=== PATIENT | female | born 1945 ===

== ENCOUNTER 2019-01-14 15:56 | Inpatient (IN) | payer MEDICARE ==
[~2019-01-14] VITALS: Ht 152.4 cm; Wt 53.1 kg
[2019-01-14 18:00] VITALS: BP 140/80
[2019-01-14] MEDS ORDERED: Z GUARD REMEDY PASTE 57 GM TUBE TOP PRN (18:00)
[2019-01-14] MEDS ORDERED: ALBU1.25 IH (19:01)
[2019-01-14] MEDS ORDERED: ENOX40DI SQ (19:01)
[2019-01-14] MEDS ORDERED: ASPI81TA31 PO (19:02)
[2019-01-14] MEDS ORDERED: CALC500T55 PO (19:02)
[2019-01-14] MEDS ORDERED: DULO60CA64 PO (19:02)
[2019-01-14] MEDS ORDERED: LACT1CAP72 PO (19:02)
[2019-01-14] MEDS ORDERED: MULT-439 PO (19:02)
[2019-01-14] MEDS ORDERED: BUDE3CAP15 PO (19:02)
[2019-01-14] MEDS ORDERED: SACC250C PO (19:02)
[2019-01-14] MEDS ORDERED: MONT10TA25 PO (19:02)
[2019-01-14] MEDS ORDERED: DONE10TA44 PO (19:02)
[2019-01-14] MEDS ORDERED: GABA600T12 PO (19:02)
[2019-01-14] MEDS ORDERED: ASCO-375 PO (19:02)
[2019-01-14] MEDS ORDERED: PANT40TA4 PO (19:02)
[2019-01-14] MEDS ORDERED: FLUT1BLS IH (19:02)
[2019-01-14] MEDS ORDERED: CHOL20004 PO (19:02)
[2019-01-14] MEDS ORDERED: PROT946L PO (19:02)
[2019-01-14] MEDS ORDERED: VIT1CAPS44 PO (19:02)
[2019-01-14] MEDS ORDERED: OMEG1CAP55 PO (19:02)
[2019-01-14 19:50] VITALS: BP 107/58
[2019-01-14] MEDS ORDERED: ALBUTEROL SULFATE 2.5 MG/3 ML NEBU NEB PRN (20:15)
[2019-01-14] MEDS: OMEGA-3 FATTY ACIDS/FISH OIL CAPSULE PO SCH (21:00)
[2019-01-14] MEDS: ACIDOPHILUS/BULGARICUS CHEW TAB PO SCH (21:00)
[2019-01-14] MEDS ORDERED: ENOXAPARIN SODIUM 40 MG/0.4 ML DISP.SYRIN SQ SCH (21:00)
[2019-01-14] MEDS: CULTURELLE CAPSULE PO SCH (21:00)
[2019-01-14] MEDS ORDERED: ENOXAPARIN SODIUM 40 MG/0.4 ML DISP.SYRIN SQ ONE (22:19)
[2019-01-14] MEDS: ALBUTEROL SULFATE 1.25 MG/3 ML NEBU IH SCH (22:20)
[2019-01-14] MEDS: IPRATROPIUM BROMIDE 0.5 MG/2.5 ML NEBU NEB PRN (22:20)
--- NOTE | 2019-01-15 04:09 | NUR ---
admitted from [facility] on 01/14/19 with admitting diagnosis of S/P left hip IM elvira placement (01/01) by Dr Yan. aaox3-4 with periods of forgetfulness. Cooperative and was able to answer questions appropriately on admission. left hip incision with anyi intact on 3 incisional sites. Denies any pain nor any discomfort. Offerred Waldron but refuse to take says its habit forming. Dr Watson aware of patient's admission. Incontinent of bowel and bladder. Kept clean and dry. Sacral area reddenned. Hx of COPD, HTN, CAD, Cataract removal, Anemia, Osteoporosis, Hyperlipidemia. On O2 @4L via nasal cannula, pulse ox 90-91%. Respiratory treatments given as ordered. No SOB nor any chest discomfort noted. Will monitor patient.
[2019-01-15] MEDS: HYDROCODONE/APAP 10-325 MG TABLET PO PRN (04:36)
[2019-01-15 05:54] VITALS: BP 131/64
[2019-01-15] MEDS: PANTOPRAZOLE SODIUM 40 MG TABLET.DR PO SCH (06:33)
[2019-01-15] MEDS: ALBUTEROL SULFATE 1.25 MG/3 ML NEBU IH SCH ×3 (06:42→22:47)
[2019-01-15] MEDS ORDERED: POTASSIUM CHLORIDE 20 MEQ TAB.PRT.SR PO ONE (08:00)
[2019-01-15 08:47] VITALS: BP 131/56
[2019-01-15] MEDS: ACIDOPHILUS/BULGARICUS CHEW TAB PO SCH (08:54)
[2019-01-15] MEDS: ASPIRIN 81 MG TAB.CHEW PO SCH (08:54)
[2019-01-15] MEDS: CULTURELLE CAPSULE PO SCH ×2 (08:54→20:14)
[2019-01-15] MEDS: ASCORBIC ACID 500 MG TABLET PO SCH (08:54)
[2019-01-15] MEDS: GABAPENTIN 300 MG CAPSULE PO SCH ×3 (08:54→16:41)
[2019-01-15] MEDS: DONEPEZIL 10 MG TABLET PO SCH (08:54)
[2019-01-15] MEDS: OMEGA-3 FATTY ACIDS/FISH OIL CAPSULE PO SCH ×2 (08:54→20:14)
[2019-01-15] MEDS: CHOLECALCIFEROL 1,000 UNIT TABLET PO SCH (08:55)
[2019-01-15] MEDS: MULTIVITAMINS,THERAPEUTIC TABLET PO SCH (08:55)
[2019-01-15] MEDS: CALCIUM CARBONATE 500 MG TABLET PO SCH (08:55)
[2019-01-15] MEDS: DULOXETINE 60 MG CAPSULE.DR PO SCH (08:55)
[2019-01-15] MEDS: MONTELUKAST SODIUM 10 MG TABLET PO SCH (08:55)
[2019-01-15] MEDS: FLUTICASONE/VILANTEROL 1 EACH BLST.W.DEV IH SCH (08:55)
[2019-01-15] MEDS ORDERED: BUDESONIDE EC 3 MG CAP.SR.24H PO SCH (09:00)
[2019-01-15] MEDS: PROTEIN SUPPLEMENT (PROSTAT) 30 ML LIQUID PO SCH (09:11)
[2019-01-15] MEDS: IPRATROPIUM BROMIDE 0.5 MG/2.5 ML NEBU NEB PRN (15:35)
--- NOTE | 2019-01-15 15:38 | NUR ---
INTERDISCIPLINARY TEAM CONFERENCE
[2019-01-15 16:00] VITALS: BP 94/56
--- NOTE | 2019-01-15 18:00 | NUR ---
Patient started therapy for unsteady gait and ADL ability. Continue oxygen via nasal cannula. tolerated well. Seen and examined by MD Wiley. no new order. will continue monitor
--- NOTE | 2019-01-15 19:30 | NUR ---
PATIENT RECEIVED IN BED WATCHING TV. ALERT AND ORIENTED X 2-3. NO C/O PAIN OR SOB AT THIS TIME. ON 3 L OF OXYGEN VIA NASAL CANULA. WAITING TO HEAR FROM NEXT OF KIN REGARDING BUDESONIDE CAPSULE TO BE BROUGHT FROM HOME. SIDE RAILS UP BILATERALLY FOR SAFETY. WILL CONTINUE TO MONITOR.
[2019-01-15] MEDS: ENOXAPARIN SODIUM 40 MG/0.4 ML DISP.SYRIN SQ SCH (20:15)
[2019-01-15 20:32] VITALS: BP 122/78
[2019-01-16 05:23] VITALS: BP 106/57
[2019-01-16] MEDS: PANTOPRAZOLE SODIUM 40 MG TABLET.DR PO SCH (06:37)
[2019-01-16 06:44] LABS: BASOPHILS # (AUTO) 0.1 K/uL (0.0-8.0); BASOPHILS % (AUTO) 2.1 % (0.0-2.0); EOSINOPHILS # (AUTO) 0.3 K/uL (0.0-0.7); HEMATOCRIT 24.3 % (31.2-41.9); HEMOGLOBIN 8.3 g/dL (10.9-14.3); LYMPHOCYTES # (AUTO) 1.5 K/uL (20.0-40.0); LYMPHOCYTES % (AUTO) 22.8 % (20.5-51.5); MEAN CORPUSCULAR HEMOGLOBIN 30.6 uug (24.7-32.8); MEAN CORPUSCULAR HGB CONC 34 g/dL (32.3-35.6); MEAN CORPUSCULAR VOLUME 89.1 fL (75.5-95.3); MONOCYTES # (AUTO) 0.9 K/uL (2.0-10.0); MONOCYTES % (AUTO) 14.2 % (0.0-11.0); NEUTROPHILS # (AUTO) 3.6 K/uL (1.8-8.9); NEUTROPHILS % (AUTO) 56.9 % (38.5-71.5); PLATELET COUNT (AUTO) 493 K/uL (179-408); RED BLOOD CELL COUNT(AUTO) 2.73 MIL/uL (3.63-4.92); WHITE BLOOD COUNT (AUTO) 6.4 K/uL (3.8-11.8)
[2019-01-16 06:56] LABS: CARBON DIOXIDE 27 mmol/L (21-32); CHLORIDE 106 mmol/L (98-107); CREATININE 0.5 mg/dL (0.6-1.3); GLUCOSE 91 mg/dL (74-106); MAGNESIUM 1.6 mg/dL (1.8-2.4); PHOSPHOROUS 3.5 mg/dL (2.5-4.9); POTASSIUM 3.9 mmol/L (3.5-5.1); UREA NITROGEN, BLOOD 14 mg/dL (7-18)
[2019-01-16] MEDS: ALBUTEROL SULFATE 1.25 MG/3 ML NEBU IH SCH ×2 (07:17→14:56)
[2019-01-16] MEDS: ASCORBIC ACID 500 MG TABLET PO SCH (08:40)
[2019-01-16] MEDS: DONEPEZIL 10 MG TABLET PO SCH (08:40)
[2019-01-16] MEDS: GABAPENTIN 300 MG CAPSULE PO SCH ×3 (08:40→17:26)
[2019-01-16] MEDS: ASPIRIN 81 MG TAB.CHEW PO SCH (08:40)
[2019-01-16] MEDS: CHOLECALCIFEROL 1,000 UNIT TABLET PO SCH (08:40)
[2019-01-16] MEDS: CALCIUM CARBONATE 500 MG TABLET PO SCH (08:41)
[2019-01-16] MEDS: OMEGA-3 FATTY ACIDS/FISH OIL CAPSULE PO SCH ×2 (08:41→20:43)
[2019-01-16] MEDS: CULTURELLE CAPSULE PO SCH ×2 (08:41→20:43)
[2019-01-16] MEDS: MULTIVITAMINS,THERAPEUTIC TABLET PO SCH (08:41)
[2019-01-16] MEDS: MONTELUKAST SODIUM 10 MG TABLET PO SCH (08:42)
[2019-01-16] MEDS: DULOXETINE 60 MG CAPSULE.DR PO SCH (08:42)
[2019-01-16] MEDS: FLUTICASONE/VILANTEROL 1 EACH BLST.W.DEV IH SCH (08:42)
[2019-01-16] MEDS: PROTEIN SUPPLEMENT (PROSTAT) 30 ML LIQUID PO SCH (08:49)
--- NOTE | 2019-01-16 09:00 | NUR ---
Patient alert, oriented x 3, not in any form of acute distress, on oxygen at 3LPM via nasal cannula. She denies any pain or discomfort at this time. Assisted patient to the toilet with physical therapist for BM, cleaned up and assisted back to wheelchair. Due medications administered and patient tolerated well. Call light and frequently used items placed within reach. Safety measures maintained.
[2019-01-16] MEDS ORDERED: MAGNESIUM OXIDE 400 MG TABLET PO ONE (14:00)
[2019-01-16 16:51] VITALS: BP 97/48
--- NOTE | 2019-01-16 19:32 | NUR ---
Patient received in bed sleeping. Alert and oriented x 3-4. No c/o of pain or SOB at this time. Midline in right upper arm intact and patent. Requesting A & D for dry lips. Will try and locate. Call light and frequently used items within reach. Will continue to monitor.
[2019-01-16] MEDS: ENOXAPARIN SODIUM 40 MG/0.4 ML DISP.SYRIN SQ SCH (20:47)
[2019-01-16 21:40] VITALS: BP 99/50
[2019-01-16] MEDS: ALBUTEROL SULFATE 1.25 MG/3 ML NEBU NEB SCH (22:36)
[2019-01-17] MEDS: PANTOPRAZOLE SODIUM 40 MG TABLET.DR PO SCH (06:33)
[2019-01-17 06:46] VITALS: BP 112/50
[2019-01-17] MEDS: ALBUTEROL SULFATE 1.25 MG/3 ML NEBU NEB SCH ×3 (07:33→22:30)
[2019-01-17] MEDS: IPRATROPIUM BROMIDE 0.5 MG/2.5 ML NEBU NEB PRN (07:33)
[2019-01-17 07:40] VITALS: BP 110/49
--- NOTE | 2019-01-17 08:02 | NUR ---
patient in bed, awake, no sob,resp even nonlabored,ski warm and dry to touch, no acute distress noted
[2019-01-17] MEDS: CHOLECALCIFEROL 1,000 UNIT TABLET PO SCH (09:35)
[2019-01-17] MEDS: DONEPEZIL 10 MG TABLET PO SCH (09:35)
[2019-01-17] MEDS: GABAPENTIN 300 MG CAPSULE PO SCH ×3 (09:35→17:47)
[2019-01-17] MEDS: CULTURELLE CAPSULE PO SCH ×2 (09:36→20:47)
[2019-01-17] MEDS: MULTIVITAMINS,THERAPEUTIC TABLET PO SCH (09:36)
[2019-01-17] MEDS: CALCIUM CARBONATE 500 MG TABLET PO SCH (09:36)
[2019-01-17] MEDS: ASPIRIN 81 MG TAB.CHEW PO SCH (09:36)
[2019-01-17] MEDS: DULOXETINE 60 MG CAPSULE.DR PO SCH (09:36)
[2019-01-17] MEDS: ASCORBIC ACID 500 MG TABLET PO SCH (09:36)
[2019-01-17] MEDS: OMEGA-3 FATTY ACIDS/FISH OIL CAPSULE PO SCH ×2 (09:37→20:47)
[2019-01-17] MEDS: FLUTICASONE/VILANTEROL 1 EACH BLST.W.DEV IH SCH (09:37)
[2019-01-17] MEDS: PROTEIN SUPPLEMENT (PROSTAT) 30 ML LIQUID PO SCH (09:38)
[2019-01-17] MEDS: BUDESONIDE 3 MG PO SCH (12:37)
[2019-01-17 15:56] VITALS: BP 94/42
--- NOTE | 2019-01-17 16:47 | NUR ---
patient is alert, oriented x3, verbally responsive, no sob, resp even nonlabored,skin warm and dry touch, status post left hip fracture, dressing intact, noted with left heel redness, right heel callus with open wound, kept heels off the pressure, wound consult placed, patient is on Lovenox, no signs or symptoms of bleeding noted, patient kept on 2liter o2, saturating at 90%. moderate to max assist with ADLs, noted with sacral redness, repositioned every 2 hours, kept dry and clean. call light with in reach, all needs attended timely.
--- NOTE | 2019-01-17 16:50 | NUR ---
INDIVIDUALIZED OVERALL PLAN OF CARE
--- NOTE | 2019-01-17 16:55 | NUR ---
family brought the medication name Budesonide given to pharmacy
[2019-01-17] MEDS: MONTELUKAST SODIUM 10 MG TABLET PO SCH (17:49)
[2019-01-17 20:45] VITALS: BP 96/48
[2019-01-17] MEDS: ENOXAPARIN SODIUM 40 MG/0.4 ML DISP.SYRIN SQ SCH (20:50)
--- NOTE | 2019-01-17 21:28 | NUR ---
Received pt resting in bed. AAO x3. On 2L O2 via NC. No acute distress noted. Denies pain or discomfort. Due meds given as ordered. Safety measures maintained. Call light within reach. Will continue to monitor.
[2019-01-18 05:51] VITALS: BP 105/51
[2019-01-18] MEDS: PANTOPRAZOLE SODIUM 40 MG TABLET.DR PO SCH (06:30)
[2019-01-18] MEDS: ALBUTEROL SULFATE 1.25 MG/3 ML NEBU NEB SCH ×3 (07:07→22:30)
--- NOTE | 2019-01-18 08:10 | NUR ---
Received patient, awake, alert x3, resting in bed with O2 at 2lpm tolerating well. Not in any form of distress, no SOB or chest pain noted. With pain only on movement over left hip and leg area.
[2019-01-18] MEDS: PROTEIN SUPPLEMENT (PROSTAT) 30 ML LIQUID PO SCH (08:51)
[2019-01-18] MEDS: ASCORBIC ACID 500 MG TABLET PO SCH (08:52)
[2019-01-18] MEDS: HYDROCODONE/APAP 10-325 MG TABLET PO PRN ×2 (08:52→18:39)
[2019-01-18] MEDS: ASPIRIN 81 MG TAB.CHEW PO SCH (08:52)
[2019-01-18] MEDS: DONEPEZIL 10 MG TABLET PO SCH (08:52)
[2019-01-18] MEDS: GABAPENTIN 300 MG CAPSULE PO SCH ×3 (08:52→18:36)
[2019-01-18] MEDS: MULTIVITAMINS,THERAPEUTIC TABLET PO SCH (08:52)
[2019-01-18] MEDS: CHOLECALCIFEROL 1,000 UNIT TABLET PO SCH (08:52)
[2019-01-18] MEDS: DULOXETINE 60 MG CAPSULE.DR PO SCH (08:53)
[2019-01-18] MEDS: OMEGA-3 FATTY ACIDS/FISH OIL CAPSULE PO SCH ×2 (08:53→20:57)
[2019-01-18] MEDS: CALCIUM CARBONATE 500 MG TABLET PO SCH (08:53)
[2019-01-18] MEDS: FLUTICASONE/VILANTEROL 1 EACH BLST.W.DEV IH SCH (08:53)
[2019-01-18] MEDS: CULTURELLE CAPSULE PO SCH ×2 (08:53→20:57)
[2019-01-18] MEDS ORDERED: MAGNESIUM OXIDE 400 MG TABLET PO SCH ×2 (09:00→17:00)
[2019-01-18 09:12] VITALS: BP 108/55
[2019-01-18] MEDS: BUDESONIDE 3 MG PO SCH (12:23)
--- NOTE | 2019-01-18 13:00 | NUR ---
Showered with moderate assistance, changed surgical dressing over left hip per soiling. Tolerated therapy well on 2lpm O2 per NC. With tolerable pain levels, PRN [place] given in AM.
[2019-01-18 18:05] VITALS: BP 89/41
[2019-01-18] MEDS: MONTELUKAST SODIUM 10 MG TABLET PO SCH (18:36)
--- NOTE | 2019-01-18 19:45 | NUR ---
PATIENT AWAKE NO SOB NO CHEST PAIN, PATIENT HAS NO COMPLAIN OF PAIN AT THIS TIME. KEPT CLEAN AND DRY, CONT TO MONITOR.
[2019-01-18 20:27] VITALS: BP 106/50
[2019-01-18] MEDS: ENOXAPARIN SODIUM 40 MG/0.4 ML DISP.SYRIN SQ SCH (21:04)
[2019-01-19 05:26] VITALS: BP 113/61
--- NOTE | 2019-01-19 05:32 | NUR ---
PATIENT SLEPT MOST OF THE NIGHT, NO COMPLAIN OF PAIN AT THIS TIME, KEPT CLEAN DRY AND COMFORTABLE, CALL LIGHT WITHIN REACH
[2019-01-19 07:15] LABS: BASOPHILS # (AUTO) 0.1 K/uL (0.0-8.0); HEMOGLOBIN 9.5 g/dL (10.9-14.3); MONOCYTES # (AUTO) 0.7 K/uL (2.0-10.0); WHITE BLOOD COUNT (AUTO) 6.6 K/uL (3.8-11.8)
[2019-01-19 07:24] LABS: CARBON DIOXIDE 29 mmol/L (21-32); CHLORIDE 102 mmol/L (98-107); CREATININE 0.6 mg/dL (0.6-1.3); GLUCOSE 99 mg/dL (74-106); MAGNESIUM 1.6 mg/dL (1.8-2.4); PHOSPHOROUS 3.5 mg/dL (2.5-4.9); POTASSIUM 4.2 mmol/L (3.5-5.1); UREA NITROGEN, BLOOD 10 mg/dL (7-18)
[2019-01-19 07:26] LABS: BASOPHILS % (AUTO) 1.4 % (0.0-2.0); EOSINOPHILS # (AUTO) 0.2 K/uL (0.0-0.7); EOSINOPHILS % (AUTO) 3.5 % (0.0-7.0); HEMATOCRIT 28.3 % (31.2-41.9); LYMPHOCYTES # (AUTO) 2.4 K/uL (20.0-40.0); LYMPHOCYTES % (AUTO) 36.5 % (20.5-51.5); MEAN CORPUSCULAR HEMOGLOBIN 30.6 uug (24.7-32.8); MEAN CORPUSCULAR HGB CONC 34 g/dL (32.3-35.6); MEAN CORPUSCULAR VOLUME 90.9 fL (75.5-95.3); MONOCYTES % (AUTO) 11.2 % (0.0-11.0); NEUTROPHILS # (AUTO) 3.1 K/uL (1.8-8.9); NEUTROPHILS % (AUTO) 47.4 % (38.5-71.5); RED BLOOD CELL COUNT(AUTO) 3.12 MIL/uL (3.63-4.92)
[2019-01-19 07:28] LABS: PLATELET COUNT (AUTO) 643 K/uL (179-408)
[2019-01-19] MEDS: ALBUTEROL SULFATE 1.25 MG/3 ML NEBU NEB SCH ×2 (07:36→15:11)
[2019-01-19 07:46] VITALS: BP 114/45
[2019-01-19] MEDS: PANTOPRAZOLE SODIUM 40 MG TABLET.DR PO SCH (08:38)
--- NOTE | 2019-01-19 09:00 | NUR ---
Received patient, awake, alert x 2-3 resting in bed. On O2 at 2lpm/ NC tolerating well sating 90%. No pain on movement. With dry and intact surgical dressing no bleeding or discharges noted.
[2019-01-19] MEDS: DONEPEZIL 10 MG TABLET PO SCH (09:55)
[2019-01-19] MEDS: MAGNESIUM OXIDE 400 MG TABLET PO SCH ×2 (09:55→17:30)
[2019-01-19] MEDS: ASCORBIC ACID 500 MG TABLET PO SCH (09:55)
[2019-01-19] MEDS: ASPIRIN 81 MG TAB.CHEW PO SCH (09:55)
[2019-01-19] MEDS: MULTIVITAMINS,THERAPEUTIC TABLET PO SCH (09:55)
[2019-01-19] MEDS: CHOLECALCIFEROL 1,000 UNIT TABLET PO SCH (09:55)
[2019-01-19] MEDS: OMEGA-3 FATTY ACIDS/FISH OIL CAPSULE PO SCH ×2 (09:55→20:46)
[2019-01-19] MEDS: HYDROCODONE/APAP 10-325 MG TABLET PO PRN (09:55)
[2019-01-19] MEDS: CULTURELLE CAPSULE PO SCH ×2 (09:56→20:46)
[2019-01-19] MEDS: GABAPENTIN 300 MG CAPSULE PO SCH ×3 (09:56→17:30)
[2019-01-19] MEDS: DULOXETINE 60 MG CAPSULE.DR PO SCH (09:56)
[2019-01-19] MEDS: PROTEIN SUPPLEMENT (PROSTAT) 30 ML LIQUID PO SCH (09:57)
[2019-01-19] MEDS: FLUTICASONE/VILANTEROL 1 EACH BLST.W.DEV IH SCH (09:57)
[2019-01-19] MEDS: CALCIUM CARBONATE 500 MG TABLET PO SCH (09:57)
[2019-01-19] MEDS: BUDESONIDE 3 MG PO SCH (12:54)
--- NOTE | 2019-01-19 13:33 | NUR ---
Seem and examined by Kamini/CAP MAKER mentioned to taper O2 as tolerated. Up with physical therapy, tolerating well. With tolerable pain levels. Will monitor patient on room air.
--- NOTE | 2019-01-19 14:10 | NUR ---
Physical therapy done on room air tolerating at 89-90%. Ambulates 5 feet with front wheel walker.
[2019-01-19 16:07] VITALS: BP 94/58
[2019-01-19] MEDS: MONTELUKAST SODIUM 10 MG TABLET PO SCH (17:30)
--- NOTE | 2019-01-19 19:30 | NUR ---
Patient alert and oriented x 3. Noted to be confused at times. No C/O pain or SOB upon assessment. Friday night photo of wounds taken, and placed in chart. No abnormalities. Platelets noted to be elevated. No new orders at this time. Side rails up bilaterally. Call light and frequently used items within reach. Will continue to monitor.
[2019-01-19 20:41] VITALS: BP 95/45
[2019-01-19] MEDS: ENOXAPARIN SODIUM 40 MG/0.4 ML DISP.SYRIN SQ SCH (20:43)
[2019-01-19] MEDS: DOCUSATE SODIUM 100 MG CAPSULE PO SCH (20:45)
[2019-01-20] MEDS: ALBUTEROL SULFATE 1.25 MG/3 ML NEBU NEB SCH ×4 (00:36→22:50)
[2019-01-20] MEDS: IPRATROPIUM BROMIDE 0.5 MG/2.5 ML NEBU NEB PRN ×2 (00:37→14:32)
--- NOTE | 2019-01-20 02:06 | NUR ---
New assignment. Pt sleeping comfortably. No acute distress noted. Safety measures maintained. Bed alarm on. Call light within reach. Will continue to monitor.
[2019-01-20 05:34] VITALS: BP 101/46
[2019-01-20] MEDS: PANTOPRAZOLE SODIUM 40 MG TABLET.DR PO SCH (06:47)
[2019-01-20 07:47] VITALS: BP 114/51
[2019-01-20] MEDS: CHOLECALCIFEROL 1,000 UNIT TABLET PO SCH (08:39)
[2019-01-20] MEDS: DOCUSATE SODIUM 100 MG CAPSULE PO SCH ×2 (08:39→20:16)
[2019-01-20] MEDS: GABAPENTIN 300 MG CAPSULE PO SCH ×3 (08:39→17:11)
[2019-01-20] MEDS: ASCORBIC ACID 500 MG TABLET PO SCH (08:39)
[2019-01-20] MEDS: ASPIRIN 81 MG TAB.CHEW PO SCH (08:39)
[2019-01-20] MEDS: MULTIVITAMINS,THERAPEUTIC TABLET PO SCH (08:39)
[2019-01-20] MEDS: MAGNESIUM OXIDE 400 MG TABLET PO SCH ×2 (08:39→17:11)
[2019-01-20] MEDS: DULOXETINE 60 MG CAPSULE.DR PO SCH (08:40)
[2019-01-20] MEDS: CULTURELLE CAPSULE PO SCH ×2 (08:40→20:18)
[2019-01-20] MEDS: OMEGA-3 FATTY ACIDS/FISH OIL CAPSULE PO SCH ×2 (08:40→20:18)
[2019-01-20] MEDS: FLUTICASONE/VILANTEROL 1 EACH BLST.W.DEV IH SCH (08:41)
[2019-01-20] MEDS: PROTEIN SUPPLEMENT (PROSTAT) 30 ML LIQUID PO SCH (08:42)
[2019-01-20] MEDS: CALCIUM CARBONATE 500 MG TABLET PO SCH (08:43)
[2019-01-20] MEDS: DONEPEZIL 10 MG TABLET PO SCH (08:59)
[2019-01-20] MEDS: BUDESONIDE 3 MG PO SCH (12:23)
[2019-01-20] MEDS: HYDROCODONE/APAP 10-325 MG TABLET PO PRN (13:32)
[2019-01-20 15:39] VITALS: BP 97/51
[2019-01-20] MEDS: MONTELUKAST SODIUM 10 MG TABLET PO SCH (17:11)
--- NOTE | 2019-01-20 17:36 | NUR ---
patient is alert, oriented x3, verbally responsive, no sob, resp even nonlabored,skin warm and dry to touch, patient is status post left hip surgery, incision site is clean and dry, dressing intact, patient is moderate to max assist with ADLs, continues on o2 supplements, saturating at 90%. no acute distress noted, tolerated meals and meds.
--- NOTE | 2019-01-20 19:30 | NUR ---
Patient alert and oriented x 3. Noted to be confused at times. No C/O pain or SOB upon assessment. Side rails up bilaterally. Call light and frequently used items within reach. Will continue to monitor.
[2019-01-20] MEDS: ENOXAPARIN SODIUM 40 MG/0.4 ML DISP.SYRIN SQ SCH (20:14)
[2019-01-20 21:00] VITALS: BP 99/48
[2019-01-21] MEDS: PANTOPRAZOLE SODIUM 40 MG TABLET.DR PO SCH (06:32)
[2019-01-21 07:02] VITALS: BP 127/60
[2019-01-21] MEDS: ALBUTEROL SULFATE 1.25 MG/3 ML NEBU NEB SCH ×3 (07:16→23:30)
[2019-01-21 07:46] VITALS: BP 119/56
[2019-01-21] MEDS: ASCORBIC ACID 500 MG TABLET PO SCH (09:13)
[2019-01-21] MEDS: ASPIRIN 81 MG TAB.CHEW PO SCH (09:13)
[2019-01-21] MEDS: MULTIVITAMINS,THERAPEUTIC TABLET PO SCH (09:13)
[2019-01-21] MEDS: CHOLECALCIFEROL 1,000 UNIT TABLET PO SCH (09:13)
[2019-01-21] MEDS: GABAPENTIN 300 MG CAPSULE PO SCH ×3 (09:13→17:14)
[2019-01-21] MEDS: CALCIUM CARBONATE 500 MG TABLET PO SCH (09:14)
[2019-01-21] MEDS: MAGNESIUM OXIDE 400 MG TABLET PO SCH ×2 (09:14→17:13)
[2019-01-21] MEDS: DULOXETINE 60 MG CAPSULE.DR PO SCH (09:14)
[2019-01-21] MEDS: CULTURELLE CAPSULE PO SCH ×2 (09:15→20:31)
[2019-01-21] MEDS: DONEPEZIL 10 MG TABLET PO SCH (09:15)
[2019-01-21] MEDS: DOCUSATE SODIUM 100 MG CAPSULE PO SCH ×2 (09:15→20:31)
[2019-01-21] MEDS: OMEGA-3 FATTY ACIDS/FISH OIL CAPSULE PO SCH ×2 (09:15→20:31)
[2019-01-21] MEDS: FLUTICASONE/VILANTEROL 1 EACH BLST.W.DEV IH SCH (09:16)
[2019-01-21] MEDS: PROTEIN SUPPLEMENT (PROSTAT) 30 ML LIQUID PO SCH (09:17)
[2019-01-21] MEDS: BUDESONIDE 3 MG PO SCH (12:28)
[2019-01-21 16:05] VITALS: BP 106/58
--- NOTE | 2019-01-21 16:48 | NUR ---
patient is alert, oriented x3, verbally responsive, no sob, resp even nonlabored, kept on o2 1liter via nasal cannula, saturating at 90%, no changes noted, left hip incision is clean and dry, no signs or symptoms fo infection noted, all needs attended, call light with in reach
[2019-01-21] MEDS: MONTELUKAST SODIUM 10 MG TABLET PO SCH (17:17)
--- NOTE | 2019-01-21 19:05 | NUR ---
Sleeping during rounds but easily arouseable when name called. Disoriented to time this time. Denies any pain/discomforts. No s/s of respiratory distress noted. Safety measure and fall precaution maintained. Continue care as planned.
[2019-01-21 19:51] VITALS: BP 109/67
[2019-01-21] MEDS: ENOXAPARIN SODIUM 40 MG/0.4 ML DISP.SYRIN SQ SCH (20:31)
[2019-01-22 05:44] VITALS: BP 114/62
[2019-01-22] MEDS: PANTOPRAZOLE SODIUM 40 MG TABLET.DR PO SCH (06:35)
[2019-01-22] MEDS: ALBUTEROL SULFATE 1.25 MG/3 ML NEBU NEB SCH ×3 (07:35→23:30)
[2019-01-22 08:00] VITALS: BP 109/57
[2019-01-22] MEDS: ASPIRIN 81 MG TAB.CHEW PO SCH (08:16)
[2019-01-22] MEDS: MAGNESIUM OXIDE 400 MG TABLET PO SCH (08:16)
[2019-01-22] MEDS: DOCUSATE SODIUM 100 MG CAPSULE PO SCH ×2 (08:16→21:15)
[2019-01-22] MEDS: CULTURELLE CAPSULE PO SCH ×2 (08:17→21:15)
[2019-01-22] MEDS: DONEPEZIL 10 MG TABLET PO SCH (08:17)
[2019-01-22] MEDS: MULTIVITAMINS,THERAPEUTIC TABLET PO SCH (08:17)
[2019-01-22] MEDS: ASCORBIC ACID 500 MG TABLET PO SCH (08:17)
[2019-01-22] MEDS: OMEGA-3 FATTY ACIDS/FISH OIL CAPSULE PO SCH ×2 (08:17→21:15)
[2019-01-22] MEDS: DULOXETINE 60 MG CAPSULE.DR PO SCH (08:17)
[2019-01-22] MEDS: CHOLECALCIFEROL 1,000 UNIT TABLET PO SCH (08:17)
[2019-01-22] MEDS: GABAPENTIN 300 MG CAPSULE PO SCH ×3 (08:17→17:12)
[2019-01-22] MEDS: FLUTICASONE/VILANTEROL 1 EACH BLST.W.DEV IH SCH (08:18)
[2019-01-22] MEDS: CALCIUM CARBONATE 500 MG TABLET PO SCH (08:29)
[2019-01-22] MEDS: PROTEIN SUPPLEMENT (PROSTAT) 30 ML LIQUID PO SCH (08:30)
--- NOTE | 2019-01-22 08:30 | NUR ---
Received patient awake, alert, oriented x 3, not in any form of distress, sitting on the wheelchair, on oxygen at 1 LPM via NC. She denies any pain or discomfort. Patient had early breakfast. Administered due medications and tolerated well. Assisted with her needs. Got her ready for follow up appointment with Dr. Yan. Patient picked up by [facility] ambulance via gurney at 8:25AM.
--- NOTE | 2019-01-22 09:41 | NUR ---
Patient back from appointment with Dr. Yan. Surgical anyi removed, with steri-strips on, incision clean and dry. Patient has no complain of any pain of discomfort. Call light placed within reach.
--- NOTE | 2019-01-22 10:09 | NUR ---
Patient on room air tolerating well with O2 sat 94-95%. Patient seen by Dr. Wiley and gave no new order.
[2019-01-22 10:43] LABS: BASOPHILS # (AUTO) 0.1 K/uL (0.0-8.0); BASOPHILS % (AUTO) 1.3 % (0.0-2.0); HEMOGLOBIN 9.7 g/dL (10.9-14.3); LYMPHOCYTES % (AUTO) 25.8 % (20.5-51.5); MONOCYTES # (AUTO) 0.7 K/uL (2.0-10.0); PLATELET COUNT (AUTO) 624 K/uL (179-408)
[2019-01-22 10:50] LABS: EOSINOPHILS # (AUTO) 0.1 K/uL (0.0-0.7); EOSINOPHILS % (AUTO) 2.8 % (0.0-7.0); LYMPHOCYTES # (AUTO) 1.3 K/uL (20.0-40.0); MEAN CORPUSCULAR HEMOGLOBIN 30.3 uug (24.7-32.8); MEAN CORPUSCULAR HGB CONC 33 g/dL (32.3-35.6); MEAN CORPUSCULAR VOLUME 90.8 fL (75.5-95.3); MONOCYTES % (AUTO) 13.7 % (0.0-11.0); NEUTROPHILS # (AUTO) 2.9 K/uL (1.8-8.9); NEUTROPHILS % (AUTO) 56.4 % (38.5-71.5); WHITE BLOOD COUNT (AUTO) 5.2 K/uL (3.8-11.8)
[2019-01-22 11:38] LABS: CARBON DIOXIDE 30 mmol/L (21-32); CHLORIDE 103 mmol/L (98-107); CREATININE 0.6 mg/dL (0.6-1.3); GLUCOSE 116 mg/dL (74-106); MAGNESIUM 1.8 mg/dL (1.8-2.4); PHOSPHOROUS 3.1 mg/dL (2.5-4.9); POTASSIUM 3.9 mmol/L (3.5-5.1); UREA NITROGEN, BLOOD 6 mg/dL (7-18)
[2019-01-22] MEDS: BUDESONIDE 3 MG PO SCH (12:31)
--- NOTE | 2019-01-22 13:46 | NUR ---
INTERDISCIPLINARY TEAM CONFERENCE
[2019-01-22 16:05] VITALS: BP 97/52
[2019-01-22] MEDS: MONTELUKAST SODIUM 10 MG TABLET PO SCH (17:13)
[2019-01-22] MEDS ORDERED: VITAMINS A AND D OINT TP PRN (18:00)
[2019-01-22] MEDS ORDERED: MISCELLANEOUS MED TP PRN (18:00)
--- NOTE | 2019-01-22 18:30 | NUR ---
Patient seen and examined by Luma LAND with order for wound treatment. Cleansed mid back with NS, pat dry, applied hydrogel and covered with mepilex. Bilateral heels applied with mepilex and offloaded with pillows. Applied mepilex on sacral area. Turned and repositioned patient Q 2 hrs. Comfort and safety measures implemented. Needs attended and met. Call light and frequently used items placed within reach. Will continue to monitor and will endorse accordingly to shift manager nurse.
--- NOTE | 2019-01-22 19:30 | NUR ---
Received patient in bed AA&Ox3, forgetful at times. On room air saturating at 92-93%. No SOB noted, not in distress. No complaints of pain at this time. Both heels offloaded w/ mepilex. Safety measures observed. Call light within reach
[2019-01-22 20:41] VITALS: BP 100/51
[2019-01-22] MEDS: ENOXAPARIN SODIUM 40 MG/0.4 ML DISP.SYRIN SQ SCH (21:24)
[2019-01-23 05:56] VITALS: BP 112/63
[2019-01-23] MEDS: PANTOPRAZOLE SODIUM 40 MG TABLET.DR PO SCH (06:35)
--- NOTE | 2019-01-23 06:45 | NUR ---
Patient slept well throughout the night. In no acute distress. No complaints of pain at this time. All due meds given. All needs attended. T/R Q2 for comfort and skin management. Both heels offloaded. Will endorse accordingly
[2019-01-23] MEDS: ALBUTEROL SULFATE 1.25 MG/3 ML NEBU NEB SCH ×3 (07:56→23:40)
[2019-01-23] MEDS: PROTEIN SUPPLEMENT (PROSTAT) 30 ML LIQUID PO SCH ×2 (08:00→08:52)
[2019-01-23 08:02] VITALS: BP 129/57
[2019-01-23] MEDS: HYDROCODONE/APAP 10-325 MG TABLET PO PRN ×2 (08:52→20:35)
[2019-01-23] MEDS: DONEPEZIL 10 MG TABLET PO SCH (08:53)
[2019-01-23] MEDS: CHOLECALCIFEROL 1,000 UNIT TABLET PO SCH (08:53)
[2019-01-23] MEDS: ASPIRIN 81 MG TAB.CHEW PO SCH (08:53)
[2019-01-23] MEDS: ASCORBIC ACID 500 MG TABLET PO SCH (08:53)
[2019-01-23] MEDS: DOCUSATE SODIUM 100 MG CAPSULE PO SCH ×2 (08:53→20:13)
[2019-01-23] MEDS: GABAPENTIN 300 MG CAPSULE PO SCH ×3 (08:54→17:14)
[2019-01-23] MEDS: MULTIVITAMINS,THERAPEUTIC TABLET PO SCH (08:54)
[2019-01-23] MEDS: OMEGA-3 FATTY ACIDS/FISH OIL CAPSULE PO SCH ×2 (09:11→20:13)
[2019-01-23] MEDS: CULTURELLE CAPSULE PO SCH ×2 (09:11→20:13)
[2019-01-23] MEDS: FLUTICASONE/VILANTEROL 1 EACH BLST.W.DEV IH SCH (09:11)
[2019-01-23] MEDS: CALCIUM CARBONATE 500 MG TABLET PO SCH (09:12)
[2019-01-23] MEDS: DULOXETINE 60 MG CAPSULE.DR PO SCH (09:12)
[2019-01-23] MEDS: BUDESONIDE 3 MG PO SCH (12:25)
[2019-01-23 16:00] VITALS: BP 109/61
[2019-01-23] MEDS: MONTELUKAST SODIUM 10 MG TABLET PO SCH (17:13)
[2019-01-23 20:09] VITALS: BP 96/42
[2019-01-23] MEDS: ENOXAPARIN SODIUM 40 MG/0.4 ML DISP.SYRIN SQ SCH (20:19)
--- NOTE | 2019-01-23 21:55 | NUR ---
Received pt resting in bed and watching tv. AAO x3, with episodes of forgetfulness. No acute distress noted. C/o 6/10 pain on the left hip. PRN pain med given. All due meds given as ordered. Wound care done, turned and repositioned. Safety measures maintained. Call light and personal belongings within reach. Will continue to monitor.
[2019-01-23] MEDS: IPRATROPIUM BROMIDE 0.5 MG/2.5 ML NEBU NEB PRN (23:40)
[2019-01-24 04:54] VITALS: BP 109/47
[2019-01-24] MEDS: PANTOPRAZOLE SODIUM 40 MG TABLET.DR PO SCH (06:33)
[2019-01-24] MEDS: ALBUTEROL SULFATE 1.25 MG/3 ML NEBU NEB SCH ×2 (08:40→15:02)
[2019-01-24] MEDS: PROTEIN SUPPLEMENT (PROSTAT) 30 ML LIQUID PO SCH (08:52)
[2019-01-24] MEDS: FLUTICASONE/VILANTEROL 1 EACH BLST.W.DEV IH SCH (08:52)
[2019-01-24] MEDS: DOCUSATE SODIUM 100 MG CAPSULE PO SCH ×2 (08:53→20:07)
[2019-01-24] MEDS: OMEGA-3 FATTY ACIDS/FISH OIL CAPSULE PO SCH ×2 (08:53→20:07)
[2019-01-24] MEDS: GABAPENTIN 300 MG CAPSULE PO SCH ×3 (08:53→17:24)
[2019-01-24] MEDS: MULTIVITAMINS,THERAPEUTIC TABLET PO SCH (08:53)
[2019-01-24] MEDS: ASCORBIC ACID 500 MG TABLET PO SCH (08:53)
[2019-01-24] MEDS: DONEPEZIL 10 MG TABLET PO SCH (08:54)
[2019-01-24] MEDS: CHOLECALCIFEROL 1,000 UNIT TABLET PO SCH (08:54)
[2019-01-24] MEDS: CULTURELLE CAPSULE PO SCH ×2 (08:54→20:07)
[2019-01-24] MEDS: CALCIUM CARBONATE 500 MG TABLET PO SCH (08:55)
[2019-01-24] MEDS: DULOXETINE 60 MG CAPSULE.DR PO SCH (08:55)
[2019-01-24] MEDS: ASPIRIN 81 MG TAB.CHEW PO SCH (08:55)
[2019-01-24] MEDS: BUDESONIDE 3 MG PO SCH (12:54)
[2019-01-24] MEDS: HYDROCODONE/APAP 10-325 MG TABLET PO PRN (12:55)
[2019-01-24] MEDS: IPRATROPIUM BROMIDE 0.5 MG/2.5 ML NEBU NEB PRN (15:02)
[2019-01-24 15:30] VITALS: BP 107/53
[2019-01-24] MEDS: MONTELUKAST SODIUM 10 MG TABLET PO SCH (17:24)
[2019-01-24 19:55] VITALS: BP 105/49
[2019-01-24] MEDS: ENOXAPARIN SODIUM 40 MG/0.4 ML DISP.SYRIN SQ SCH (20:14)
--- NOTE | 2019-01-24 20:35 | NUR ---
Received pt resting in bed and watching tv. AAO x3, forgetful. No acute distress noted. Denies pain/ discomfort at this time. All due meds given as ordered. Safety measures maintained. Call light and personal belongings within reach. Will continue to monitor.
[2019-01-25 05:10] VITALS: BP 104/53
[2019-01-25] MEDS: PANTOPRAZOLE SODIUM 40 MG TABLET.DR PO SCH (06:30)
[2019-01-25] MEDS: ALBUTEROL SULFATE 1.25 MG/3 ML NEBU NEB SCH ×3 (07:20→23:05)
[2019-01-25 07:59] VITALS: BP 113/36
[2019-01-25] MEDS: GABAPENTIN 300 MG CAPSULE PO SCH ×3 (09:14→17:27)
[2019-01-25] MEDS: PROTEIN SUPPLEMENT (PROSTAT) 30 ML LIQUID PO SCH (09:14)
[2019-01-25] MEDS: FLUTICASONE/VILANTEROL 1 EACH BLST.W.DEV IH SCH (09:14)
[2019-01-25] MEDS: DONEPEZIL 10 MG TABLET PO SCH (09:15)
[2019-01-25] MEDS: DOCUSATE SODIUM 100 MG CAPSULE PO SCH ×2 (09:15→21:02)
[2019-01-25] MEDS: CHOLECALCIFEROL 1,000 UNIT TABLET PO SCH (09:15)
[2019-01-25] MEDS: MULTIVITAMINS,THERAPEUTIC TABLET PO SCH (09:15)
[2019-01-25] MEDS: ASPIRIN 81 MG TAB.CHEW PO SCH (09:15)
[2019-01-25] MEDS: ASCORBIC ACID 500 MG TABLET PO SCH (09:15)
[2019-01-25] MEDS: CALCIUM CARBONATE 500 MG TABLET PO SCH (09:16)
[2019-01-25] MEDS: DULOXETINE 60 MG CAPSULE.DR PO SCH (09:16)
[2019-01-25] MEDS: OMEGA-3 FATTY ACIDS/FISH OIL CAPSULE PO SCH ×2 (09:16→21:02)
[2019-01-25] MEDS: CULTURELLE CAPSULE PO SCH ×2 (09:16→21:02)
[2019-01-25] MEDS: HYDROCODONE/APAP 10-325 MG TABLET PO PRN (09:40)
[2019-01-25] MEDS: BUDESONIDE 3 MG PO SCH (12:26)
--- NOTE | 2019-01-25 14:34 | NUR ---
Received patient, awake, alert x3. Resting in bed with periods of forgetfulness. On O2 at 2lpm, NC tolerating well at 98%. No SOB, chest pains noted. Not in any form of distress.
--- NOTE | 2019-01-25 14:40 | NUR ---
Up with physical therapy, tolerating well on room air at 95% no SOB noted. No pain noted.
[2019-01-25 16:45] VITALS: BP 103/37
[2019-01-25] MEDS: MONTELUKAST SODIUM 10 MG TABLET PO SCH (17:27)
[2019-01-25] MEDS: ENOXAPARIN SODIUM 40 MG/0.4 ML DISP.SYRIN SQ SCH (21:02)
[2019-01-25 22:12] VITALS: BP 96/56
--- NOTE | 2019-01-25 23:20 | NUR ---
Sleeping during initial rounds. No s/s of respiratory distress noted. HOB slightly elevated. Safety measure and fall precaution maintained. Continue plan of care.
[2019-01-26 04:10] VITALS: BP 113/45
--- NOTE | 2019-01-26 06:40 | NUR ---
Shift End Report: Vs stable. Slept well. No complaint presented. All needs attended and met. No significant event reported. Continue current rehab plan of care.
[2019-01-26] MEDS: PANTOPRAZOLE SODIUM 40 MG TABLET.DR PO SCH (06:43)
[2019-01-26] MEDS: ALBUTEROL SULFATE 1.25 MG/3 ML NEBU NEB SCH ×3 (07:26→22:30)
[2019-01-26 07:40] LABS: BASOPHILS # (AUTO) 0.1 K/uL (0.0-8.0); BASOPHILS % (AUTO) 1.4 % (0.0-2.0); EOSINOPHILS # (AUTO) 0.4 K/uL (0.0-0.7); EOSINOPHILS % (AUTO) 7.5 % (0.0-7.0); HEMATOCRIT 28.1 % (31.2-41.9); HEMOGLOBIN 9.3 g/dL (10.9-14.3); LYMPHOCYTES # (AUTO) 1.8 K/uL (20.0-40.0); LYMPHOCYTES % (AUTO) 32.3 % (20.5-51.5); MEAN CORPUSCULAR HEMOGLOBIN 30.2 uug (24.7-32.8); MEAN CORPUSCULAR HGB CONC 33 g/dL (32.3-35.6); MEAN CORPUSCULAR VOLUME 91.5 fL (75.5-95.3); MONOCYTES # (AUTO) 0.8 K/uL (2.0-10.0); MONOCYTES % (AUTO) 14.3 % (0.0-11.0); NEUTROPHILS # (AUTO) 2.5 K/uL (1.8-8.9); NEUTROPHILS % (AUTO) 44.5 % (38.5-71.5); PLATELET COUNT (AUTO) 469 K/uL (179-408); RED BLOOD CELL COUNT(AUTO) 3.07 MIL/uL (3.63-4.92); WHITE BLOOD COUNT (AUTO) 5.7 K/uL (3.8-11.8)
[2019-01-26 08:05] LABS: CARBON DIOXIDE 33 mmol/L (21-32); CHLORIDE 104 mmol/L (98-107); CREATININE 0.6 mg/dL (0.6-1.3); GLUCOSE 95 mg/dL (74-106); MAGNESIUM 1.7 mg/dL (1.8-2.4); PHOSPHOROUS 3.8 mg/dL (2.5-4.9); POTASSIUM 4.4 mmol/L (3.5-5.1); UREA NITROGEN, BLOOD 9 mg/dL (7-18)
[2019-01-26 08:34] VITALS: BP 113/48
[2019-01-26] MEDS: CHOLECALCIFEROL 1,000 UNIT TABLET PO SCH (08:56)
[2019-01-26] MEDS: GABAPENTIN 300 MG CAPSULE PO SCH ×3 (08:56→17:42)
[2019-01-26] MEDS: DONEPEZIL 10 MG TABLET PO SCH (08:56)
[2019-01-26] MEDS: DOCUSATE SODIUM 100 MG CAPSULE PO SCH ×2 (08:56→20:27)
[2019-01-26] MEDS: ASCORBIC ACID 500 MG TABLET PO SCH (08:56)
[2019-01-26] MEDS: MULTIVITAMINS,THERAPEUTIC TABLET PO SCH (08:56)
[2019-01-26] MEDS: ASPIRIN 81 MG TAB.CHEW PO SCH (08:57)
[2019-01-26] MEDS: DULOXETINE 60 MG CAPSULE.DR PO SCH (08:57)
[2019-01-26] MEDS: CALCIUM CARBONATE 500 MG TABLET PO SCH (08:57)
[2019-01-26] MEDS: OMEGA-3 FATTY ACIDS/FISH OIL CAPSULE PO SCH ×2 (08:57→20:27)
[2019-01-26] MEDS: CULTURELLE CAPSULE PO SCH ×2 (08:57→20:27)
[2019-01-26] MEDS: PROTEIN SUPPLEMENT (PROSTAT) 30 ML LIQUID PO SCH (08:58)
[2019-01-26] MEDS: FLUTICASONE/VILANTEROL 1 EACH BLST.W.DEV IH SCH (09:02)
[2019-01-26] MEDS: MAGNESIUM OXIDE 400 MG TABLET PO SCH ×2 (10:22→17:42)
--- NOTE | 2019-01-26 11:25 | NUR ---
Patient continue treatment for sacrum wound ulcer hydrogel and cover with mepilex. wound in mid buttocks seen by MD Kelley. ordered tripple antibiotic. Continue therapy for ambulation and ADL ability.will continue monitor
[2019-01-26] MEDS: BUDESONIDE 3 MG PO SCH (12:27)
[2019-01-26] MEDS ORDERED: LIDOCAINE 1%-EPI 1:100,000 20 ML VIAL TP ONE (12:45)
[2019-01-26] MEDS ORDERED: SILVER NITRATE APPLICATOR STICK EACH TP ONE (12:45)
[2019-01-26 16:27] VITALS: BP 110/52
[2019-01-26] MEDS: MONTELUKAST SODIUM 10 MG TABLET PO SCH (17:42)
--- NOTE | 2019-01-26 19:50 | NUR ---
Awake, up on her wheelchair in his room during initial rounds. Denies any pain/discomforts at this time. No s/s of respiratory distress noted. Safety measure and fall precaution maintained. Continue care as planned.
[2019-01-26] MEDS: ENOXAPARIN SODIUM 40 MG/0.4 ML DISP.SYRIN SQ SCH (20:28)
[2019-01-26 21:00] VITALS: BP 101/46
[2019-01-27] MEDS: HYDROCODONE/APAP 10-325 MG TABLET PO PRN ×3 (01:40→16:57)
--- NOTE | 2019-01-27 01:43 | NUR ---
Medicated for pain on both lower extremities in scale of 7/10. Will monitor.
--- NOTE | 2019-01-27 03:00 | NUR ---
Sleeping soundly at this time. Pain meds effective.
[2019-01-27 04:41] VITALS: BP 101/48
[2019-01-27] MEDS: PANTOPRAZOLE SODIUM 40 MG TABLET.DR PO SCH (06:21)
--- NOTE | 2019-01-27 06:22 | NUR ---
Shift End Report: VS stable. Medicated once for leg pain with relief. No further complaint presented besides having a stiff legs that she refused to have picture taken of her wounds. Will endorse to oncoming nurse. All needs attended and met. All needs attended and met. No significant event reported all night. Continue current rehab plan of care.
[2019-01-27] MEDS: ALBUTEROL SULFATE 1.25 MG/3 ML NEBU NEB SCH ×3 (08:15→23:08)
[2019-01-27 08:23] VITALS: BP 113/55
[2019-01-27] MEDS: DONEPEZIL 10 MG TABLET PO SCH (08:28)
[2019-01-27] MEDS: ASPIRIN 81 MG TAB.CHEW PO SCH (08:28)
[2019-01-27] MEDS: DOCUSATE SODIUM 100 MG CAPSULE PO SCH ×2 (08:28→20:32)
[2019-01-27] MEDS: GABAPENTIN 300 MG CAPSULE PO SCH ×3 (08:28→16:57)
[2019-01-27] MEDS: MAGNESIUM OXIDE 400 MG TABLET PO SCH ×2 (08:28→16:57)
[2019-01-27] MEDS: ASCORBIC ACID 500 MG TABLET PO SCH (08:28)
[2019-01-27] MEDS: CHOLECALCIFEROL 1,000 UNIT TABLET PO SCH (08:28)
[2019-01-27] MEDS: MULTIVITAMINS,THERAPEUTIC TABLET PO SCH (08:28)
[2019-01-27] MEDS: FLUTICASONE/VILANTEROL 1 EACH BLST.W.DEV IH SCH (08:29)
[2019-01-27] MEDS: PROTEIN SUPPLEMENT (PROSTAT) 30 ML LIQUID PO SCH (08:29)
[2019-01-27] MEDS: NEOMY/BACITRAC/POLYMI OINT 28.35 GM TUBE TOP SCH (08:38)
[2019-01-27] MEDS: CULTURELLE CAPSULE PO SCH ×2 (09:17→20:34)
[2019-01-27] MEDS: CALCIUM CARBONATE 500 MG TABLET PO SCH (09:24)
[2019-01-27] MEDS: OMEGA-3 FATTY ACIDS/FISH OIL CAPSULE PO SCH ×2 (09:24→20:32)
[2019-01-27] MEDS: DULOXETINE 60 MG CAPSULE.DR PO SCH (09:24)
--- NOTE | 2019-01-27 10:00 | NUR ---
Received patient, awake, alert x3 with periods of forgetfulness. With pain over left leg and heel, PRN [place] given. Not in any form of distress. No SOb or chest pains, tolerating room air at 95%. Morning care done. Up with occupational therapy tolerating well.
[2019-01-27] MEDS: BUDESONIDE 3 MG PO SCH (12:37)
[2019-01-27 15:59] VITALS: BP 98/54
[2019-01-27] MEDS: MONTELUKAST SODIUM 10 MG TABLET PO SCH (17:08)
[2019-01-27 20:03] VITALS: BP 105/55
[2019-01-27] MEDS: ENOXAPARIN SODIUM 40 MG/0.4 ML DISP.SYRIN SQ SCH (20:38)
--- NOTE | 2019-01-27 22:57 | NUR ---
awake alert and oriented x2-3 forgetful at times. needs attended. VSS. OOB to the BR with wheelchair. Voiding freely. Denies any pain nor any discomfort. Kept comfortable. Fall precautions maintained. Siderails up for safety.Tolerated po meds well.
[2019-01-28 05:26] VITALS: BP 110/56
[2019-01-28] MEDS: PANTOPRAZOLE SODIUM 40 MG TABLET.DR PO SCH (06:30)
[2019-01-28 06:58] LABS: BASOPHILS # (AUTO) 0.1 K/uL (0.0-8.0); BASOPHILS % (AUTO) 1.5 % (0.0-2.0); EOSINOPHILS # (AUTO) 0.4 K/uL (0.0-0.7); EOSINOPHILS % (AUTO) 6.4 % (0.0-7.0); HEMATOCRIT 28.2 % (31.2-41.9); HEMOGLOBIN 9.5 g/dL (10.9-14.3); LYMPHOCYTES # (AUTO) 1.9 K/uL (20.0-40.0); MEAN CORPUSCULAR HEMOGLOBIN 30.6 uug (24.7-32.8); MEAN CORPUSCULAR HGB CONC 34 g/dL (32.3-35.6); MEAN CORPUSCULAR VOLUME 91.3 fL (75.5-95.3); MONOCYTES # (AUTO) 0.8 K/uL (2.0-10.0); MONOCYTES % (AUTO) 12.3 % (0.0-11.0); NEUTROPHILS # (AUTO) 3.1 K/uL (1.8-8.9); NEUTROPHILS % (AUTO) 49.8 % (38.5-71.5); PLATELET COUNT (AUTO) 412 K/uL (179-408); RED BLOOD CELL COUNT(AUTO) 3.09 MIL/uL (3.63-4.92); WHITE BLOOD COUNT (AUTO) 6.2 K/uL (3.8-11.8)
[2019-01-28 07:08] LABS: CARBON DIOXIDE 29 mmol/L (21-32); CHLORIDE 105 mmol/L (98-107); CREATININE 0.5 mg/dL (0.6-1.3); GLUCOSE 90 mg/dL (74-106); MAGNESIUM 1.7 mg/dL (1.8-2.4); POTASSIUM 4.3 mmol/L (3.5-5.1); UREA NITROGEN, BLOOD 7 mg/dL (7-18)
[2019-01-28] MEDS: ALBUTEROL SULFATE 1.25 MG/3 ML NEBU NEB SCH ×3 (08:28→23:39)
[2019-01-28 08:45] VITALS: BP 137/40
[2019-01-28] MEDS: PROTEIN SUPPLEMENT (PROSTAT) 30 ML LIQUID PO SCH (09:03)
[2019-01-28] MEDS: FLUTICASONE/VILANTEROL 1 EACH BLST.W.DEV IH SCH (09:03)
[2019-01-28] MEDS: MAGNESIUM OXIDE 400 MG TABLET PO SCH ×2 (09:03→17:50)
[2019-01-28] MEDS: CHOLECALCIFEROL 1,000 UNIT TABLET PO SCH (09:04)
[2019-01-28] MEDS: DOCUSATE SODIUM 100 MG CAPSULE PO SCH ×2 (09:05→20:46)
[2019-01-28] MEDS: MULTIVITAMINS,THERAPEUTIC TABLET PO SCH (09:05)
[2019-01-28] MEDS: ASCORBIC ACID 500 MG TABLET PO SCH (09:05)
[2019-01-28] MEDS: ASPIRIN 81 MG TAB.CHEW PO SCH (09:05)
[2019-01-28] MEDS: GABAPENTIN 300 MG CAPSULE PO SCH ×3 (09:05→17:50)
[2019-01-28] MEDS: DULOXETINE 60 MG CAPSULE.DR PO SCH (09:06)
[2019-01-28] MEDS: CULTURELLE CAPSULE PO SCH ×2 (09:06→20:47)
[2019-01-28] MEDS: CALCIUM CARBONATE 500 MG TABLET PO SCH (09:06)
[2019-01-28] MEDS: DONEPEZIL 10 MG TABLET PO SCH (09:07)
[2019-01-28] MEDS: OMEGA-3 FATTY ACIDS/FISH OIL CAPSULE PO SCH ×2 (09:07→20:46)
[2019-01-28] MEDS: NEOMY/BACITRAC/POLYMI OINT 28.35 GM TUBE TOP SCH (09:08)
[2019-01-28] MEDS: HYDROCODONE/APAP 10-325 MG TABLET PO PRN (13:45)
[2019-01-28] MEDS: BUDESONIDE 3 MG PO SCH (13:45)
[2019-01-28] MEDS: MONTELUKAST SODIUM 10 MG TABLET PO SCH (17:53)
--- NOTE | 2019-01-28 19:12 | NUR ---
Patient calm and comfortable with no signs of distress; stable vital signs; medication compliant.
[2019-01-28 20:17] VITALS: BP 114/64
[2019-01-28] MEDS: ENOXAPARIN SODIUM 40 MG/0.4 ML DISP.SYRIN SQ SCH (20:51)
--- NOTE | 2019-01-28 21:59 | NUR ---
awake alert and oriented x2-3 needs attended. VSS. kept comfortable. OOB to the BR via wheelchair, Voiding freely. Patient also gets incontinent @ times. Wears diaper at night. PM care done. Tolerated po meds well. Fall precautions maintained. Siderails up for safety. Call santos within reach. Compliant with meds.
[2019-01-29 05:53] VITALS: BP 127/60
[2019-01-29] MEDS: PANTOPRAZOLE SODIUM 40 MG TABLET.DR PO SCH (06:30)
[2019-01-29] MEDS: ALBUTEROL SULFATE 1.25 MG/3 ML NEBU NEB SCH ×3 (07:15→15:30)
[2019-01-29] MEDS: ASPIRIN 81 MG TAB.CHEW PO SCH (07:33)
[2019-01-29] MEDS: MULTIVITAMINS,THERAPEUTIC TABLET PO SCH (07:33)
[2019-01-29] MEDS: CHOLECALCIFEROL 1,000 UNIT TABLET PO SCH (07:34)
[2019-01-29] MEDS: DONEPEZIL 10 MG TABLET PO SCH (07:34)
[2019-01-29] MEDS: GABAPENTIN 300 MG CAPSULE PO SCH ×3 (07:35→17:31)
[2019-01-29] MEDS: MAGNESIUM OXIDE 400 MG TABLET PO SCH ×2 (07:35→17:31)
[2019-01-29] MEDS: ASCORBIC ACID 500 MG TABLET PO SCH (07:36)
[2019-01-29] MEDS: OMEGA-3 FATTY ACIDS/FISH OIL CAPSULE PO SCH ×2 (07:36→21:34)
[2019-01-29] MEDS: DULOXETINE 60 MG CAPSULE.DR PO SCH (07:37)
[2019-01-29] MEDS: CALCIUM CARBONATE 500 MG TABLET PO SCH (07:37)
[2019-01-29] MEDS: FLUTICASONE/VILANTEROL 1 EACH BLST.W.DEV IH SCH (07:38)
[2019-01-29] MEDS: DOCUSATE SODIUM 100 MG CAPSULE PO SCH ×2 (07:38→21:39)
[2019-01-29 08:03] VITALS: BP 116/53
[2019-01-29] MEDS: CULTURELLE CAPSULE PO SCH ×2 (08:16→21:34)
[2019-01-29] MEDS: PROTEIN SUPPLEMENT (PROSTAT) 30 ML LIQUID PO SCH (08:17)
[2019-01-29] MEDS: NEOMY/BACITRAC/POLYMI OINT 28.35 GM TUBE TOP SCH (08:21)
[2019-01-29] MEDS: HYDROCODONE/APAP 10-325 MG TABLET PO PRN (10:22)
[2019-01-29] MEDS: BUDESONIDE 3 MG PO SCH (14:16)
--- NOTE | 2019-01-29 14:54 | NUR ---
INTERDISCIPLINARY TEAM CONFERENCE
[2019-01-29] MEDS: MONTELUKAST SODIUM 10 MG TABLET PO SCH (17:29)
[2019-01-29] MEDS: ENOXAPARIN SODIUM 40 MG/0.4 ML DISP.SYRIN SQ SCH (21:32)
[2019-01-29 21:34] VITALS: BP 110/61
[2019-01-30] MEDS: ALBUTEROL SULFATE 1.25 MG/3 ML NEBU NEB SCH ×4 (00:08→22:33)
[2019-01-30] MEDS: HYDROCODONE/APAP 10-325 MG TABLET PO PRN ×2 (01:46→21:07)
[2019-01-30 06:02] VITALS: BP 114/70
[2019-01-30] MEDS: PANTOPRAZOLE SODIUM 40 MG TABLET.DR PO SCH (06:35)
--- NOTE | 2019-01-30 07:53 | NUR ---
Patient awake at this time, alert and oriented x4, able to express needs. Respiration is even and unlabored. Skin warm and dry to touch. Left hip surgical site intact with NO drainage or any s/sx of infection noted. All due medications administered as ordered and scheduled and tolerated well. On PT/OT therapy as ordered. Needs attended, safety measures in place, call light left at bed side, endorsed to next shift and will continue with care.
[2019-01-30 08:00] VITALS: BP 136/49
[2019-01-30] MEDS: ASPIRIN 81 MG TAB.CHEW PO SCH (09:25)
[2019-01-30] MEDS: MULTIVITAMINS,THERAPEUTIC TABLET PO SCH (09:25)
[2019-01-30] MEDS: DOCUSATE SODIUM 100 MG CAPSULE PO SCH ×2 (09:25→21:02)
[2019-01-30] MEDS: GABAPENTIN 300 MG CAPSULE PO SCH ×3 (09:25→17:04)
[2019-01-30] MEDS: CHOLECALCIFEROL 1,000 UNIT TABLET PO SCH (09:25)
[2019-01-30] MEDS: ASCORBIC ACID 500 MG TABLET PO SCH (09:25)
[2019-01-30] MEDS: DONEPEZIL 10 MG TABLET PO SCH (09:25)
[2019-01-30] MEDS: CALCIUM CARBONATE 500 MG TABLET PO SCH (09:26)
[2019-01-30] MEDS: CULTURELLE CAPSULE PO SCH ×2 (09:26→21:02)
[2019-01-30] MEDS: DULOXETINE 60 MG CAPSULE.DR PO SCH (09:27)
[2019-01-30] MEDS: MAGNESIUM OXIDE 400 MG TABLET PO SCH ×2 (09:27→17:04)
[2019-01-30] MEDS: FLUTICASONE/VILANTEROL 1 EACH BLST.W.DEV IH SCH (09:28)
[2019-01-30] MEDS: PROTEIN SUPPLEMENT (PROSTAT) 30 ML LIQUID PO SCH (09:28)
[2019-01-30] MEDS: NEOMY/BACITRAC/POLYMI OINT 28.35 GM TUBE TOP SCH (09:29)
[2019-01-30] MEDS: OMEGA-3 FATTY ACIDS/FISH OIL CAPSULE PO SCH ×2 (09:29→21:02)
[2019-01-30] MEDS: BUDESONIDE 3 MG PO SCH (12:02)
[2019-01-30 15:58] VITALS: BP 101/63
[2019-01-30] MEDS: MONTELUKAST SODIUM 10 MG TABLET PO SCH (17:03)
[2019-01-30] MEDS: ENOXAPARIN SODIUM 40 MG/0.4 ML DISP.SYRIN SQ SCH (21:04)
[2019-01-30 21:06] VITALS: BP 113/58
--- NOTE | 2019-01-31 03:19 | NUR ---
Patient is alert and oriented x4 able to express needs verbally. Breathing is even and unlabored. In NO acute distress. Vital signs taken and stable for patient. Due medications administered as ordered and scheduled and tolerated well. on PT/OT therapy as ordered. Left Hip surgical site intact. Skin kept clean and dry, needs attended, safety measures in place, call light at bed side and will continue with care.
[2019-01-31 04:00] VITALS: BP 115/54
[2019-01-31] MEDS: PANTOPRAZOLE SODIUM 40 MG TABLET.DR PO SCH (06:30)
--- NOTE | 2019-01-31 07:47 | NUR ---
Around 6:45am during patient check, Pt. noted being sweaty and sleepy. Blood sugar checked right away and patient noted with BS of 28mg/dl, called for charge nurse right away patient given orange juice and milk. Stayed with patient monitoring blood sugar. Patient arousable; rechecked BS after 30 minutes and 63mg/dl. Patient talking stating feeling ok but sleepy. Offered extra orange juice and monitored closely. Rechecked BS and 96mg/dl. Patient resting comfortably, In no acute distress, Vital signs taken B/P-123/57, O2 Sat. of 97% on O2NC at 2lpm, P-68, RR-17, Temp.-97.4(axillary), endorsed to next shift, call light within easy reach and will continue with care.
[2019-01-31 08:16] VITALS: BP 100/58
[2019-01-31] MEDS: ASPIRIN 81 MG TAB.CHEW PO SCH (08:58)
[2019-01-31] MEDS: DONEPEZIL 10 MG TABLET PO SCH (08:58)
[2019-01-31] MEDS: ASCORBIC ACID 500 MG TABLET PO SCH (08:58)
[2019-01-31] MEDS: DOCUSATE SODIUM 100 MG CAPSULE PO SCH (08:58)
[2019-01-31] MEDS: MULTIVITAMINS,THERAPEUTIC TABLET PO SCH (08:59)
[2019-01-31] MEDS: MAGNESIUM OXIDE 400 MG TABLET PO SCH ×2 (08:59→17:18)
[2019-01-31] MEDS: OMEGA-3 FATTY ACIDS/FISH OIL CAPSULE PO SCH (08:59)
[2019-01-31] MEDS: GABAPENTIN 300 MG CAPSULE PO SCH ×3 (08:59→17:18)
[2019-01-31] MEDS: CULTURELLE CAPSULE PO SCH (08:59)
[2019-01-31] MEDS: CHOLECALCIFEROL 1,000 UNIT TABLET PO SCH (08:59)
[2019-01-31] MEDS: DULOXETINE 60 MG CAPSULE.DR PO SCH (09:00)
[2019-01-31] MEDS: CALCIUM CARBONATE 500 MG TABLET PO SCH (09:00)
[2019-01-31] MEDS: PROTEIN SUPPLEMENT (PROSTAT) 30 ML LIQUID PO SCH (09:02)
[2019-01-31] MEDS: NEOMY/BACITRAC/POLYMI OINT 28.35 GM TUBE TOP SCH (09:03)
[2019-01-31] MEDS: FLUTICASONE/VILANTEROL 1 EACH BLST.W.DEV IH SCH (09:04)
[2019-01-31] MEDS: ALBUTEROL SULFATE 1.25 MG/3 ML NEBU NEB SCH ×2 (09:13→15:51)
[2019-01-31] MEDS: BUDESONIDE 3 MG PO SCH (13:12)
[2019-01-31] MEDS: HYDROCODONE/APAP 10-325 MG TABLET PO PRN (15:01)
[2019-01-31 16:07] VITALS: BP 102/41
[2019-01-31] MEDS: MONTELUKAST SODIUM 10 MG TABLET PO SCH (17:19)
--- NOTE | 2019-01-31 18:15 | NUR ---
D/C TO [facility]. THE REPS FROM THE [facility] PICKED HER UP. D/C INSTRUCTIONS GIVEN TO PT AND LIVING FACILITY STAFF. HOME HEALTH WAS CALLED FOR AN EVAL TO BE DONE TOMORROW. D/C PICS AND ORDER ON CHART. VSS NO ACUTE DISTRESS.
== END 2019-01-31 18:10 | disposition home health service (06) | DRG 463 ==
PROVIDERS: ADMIT Physical Medicine & Rehabilitation Pain Medicine; ATTEND Physical Medicine & Rehabilitation Pain Medicine
PROC: 0JB70ZZ Excision of Back Subcutaneous Tissue and Fascia, Open Approach (ICD-10-PCS; principal; 2019-01-26)
DX: S72.142D Displaced intertrochanteric fracture of left femur, subsequent encounter for closed fracture with routine healing (principal); L89.153 Pressure ulcer of sacral region, stage 3; J96.01 Acute respiratory failure with hypoxia; I50.32 Chronic diastolic (congestive) heart failure; W18.30XD Fall on same level, unspecified, subsequent encounter; E78.5 Hyperlipidemia, unspecified; I11.0 Hypertensive heart disease with heart failure; D63.8 Anemia in other chronic diseases classified elsewhere; J44.9 Chronic obstructive pulmonary disease, unspecified; Z86.73 Personal history of transient ischemic attack (TIA), and cerebral infarction without residual deficits; E83.42 Hypomagnesemia; F17.210 Nicotine dependence, cigarettes, uncomplicated; I25.10 Atherosclerotic heart disease of native coronary artery without angina pectoris; K21.9 Gastro-esophageal reflux disease without esophagitis; L89.102 Pressure ulcer of unspecified part of back, stage 2; L84 Corns and callosities; M19.90 Unspecified osteoarthritis, unspecified site; M40.294 Other kyphosis, thoracic region; R26.9 Unspecified abnormalities of gait and mobility; M81.0 Age-related osteoporosis without current pathological fracture; M25.562 Pain in left knee; M62.838 Other muscle spasm; Z66 Do not resuscitate
CPT/HCPCS: 36415; 71045; 73502; 83735; 84100; 85025; 94640; 94664; A4663; J1650; J3490; J3590